=== PATIENT | female | born 1970 | race Caucasian/White ===

== ENCOUNTER 2020-07-29 17:14 | Emergency (ER) | payer BC ==
[~2020-07-29] VITALS: Ht 167.6 cm; Wt 55.0 kg
[2020-07-29 17:21] VITALS: BP 181/113; Ht 167.6 cm; Wt 55.0 kg
[2020-07-29] MEDS ORDERED: HYDROCHLOROTH12.5 M1 PO (17:23)
[2020-07-29] MEDS ORDERED: NORVASC10 MG PO (17:23)
== END 2020-07-30 01:21 | disposition left against medical advice (07) ==
LOC: D.ER 17:14
DX: Z71.1 Person with feared health complaint in whom no diagnosis is made (principal)